=== PATIENT | male | born 1970 | race American Indian/Alaskan Native ===

== ENCOUNTER 2017-01-29 15:56 | Outpatient (CLI) | payer OTHER ==
--- NOTE | 2017-01-30 07:37 | XRay Report ---
LUMBOSACRAL SPINE, 3 VIEWS: History: Back pain, sciatica on the left side. Findings: Correlation is made with a lumbar spine x-ray report dated 10/19/12. The images are not available. There's been previous posterior fusion at L5-S1. Anterior stabilization screws are also again noted. A disc spacer device is identified. Moderate disc space narrowing, spurring, facet arthropathy and vacuum phenomenon are noted at L4-5. The remaining levels are within normal limits. No evidence for compression deformity or bone lesion. Impression: Postsurgical changes as described with moderate degenerative changes which are most prominent at L4-5 and to a lesser extent L5-S1. No acute process noted.
== END 2017-01-29 15:57 | disposition home or self-care (01) ==
LOC: XRAY 15:56
PROVIDERS: ATTEND Internal Medicine
DX: Z02.71 Encounter for disability determination (principal); M47.896 Other spondylosis, lumbar region; M12.88 Other specific arthropathies, not elsewhere classified, other specified site
CPT/HCPCS: 72100